=== PATIENT | female | born 1980 | race Caucasian/White ===

== ENCOUNTER 2021-03-16 15:22 | Emergency (ER) | payer BC ==
[~2021-03-16] VITALS: Ht 154.9 cm; Wt 97.5 kg
[2021-03-16 16:32] LABS: HEMOGLOBIN 11.6 gm/dl (12.3-15.3); RED BLOOD COUNT 4.67 M/UL (4.00-5.10); WHITE BLOOD COUNT 8.4 K/UL (4.5-11.0)
[2021-03-16 16:43] LABS: BUN/CREATININE RATIO 10 (0-10)
== END 2021-03-16 23:35 | disposition home or self-care (01) ==
LOC: ER1 15:22
PROVIDERS: Physician Assistant
DX: U07.1 COVID-19 (principal); Z90.49 Acquired absence of other specified parts of digestive tract; Z90.89 Acquired absence of other organs
CPT/HCPCS: 71045; 80053; 85025; 99284